=== PATIENT | female | born 1990 | race Caucasian/White ===

== ENCOUNTER 2017-03-27 18:46 | Emergency (ER) | payer MEDICAID ==
[~2017-03-27] VITALS: Ht 160 cm; Wt 75.0 kg
[2017-03-27] MEDS ORDERED: ALPR0.5T96 PO (18:55)
[2017-03-27] MEDS ORDERED: ACETAMINOPHEN 500MG TABLET PO ONE (22:30)
[2017-03-28] MEDS ORDERED: IBUPROFEN 600MG TABLET PO ONE (00:45)
[2017-03-28 01:35] VITALS: BP 135/83
== END 2017-03-28 01:37 | disposition home or self-care (01) ==
LOC: ER 21:19
DX: R60.0 Localized edema (principal)
CPT/HCPCS: 73630; 93971; 99284